=== PATIENT | female | born 1985 | race Caucasian/White ===

== ENCOUNTER 2022-02-15 21:49 | Emergency (ER) | payer SELFPAY ==
[~2022-02-15] VITALS: Ht 154.9 cm; Wt 70.9 kg
[2022-02-16] MEDS ORDERED: MECLIZINE 25MG TABLET PO ONE (01:15)
[2022-02-16] MEDS ORDERED: ACETAMINOPHEN 325MG TABLET PO ONE (01:15)
[2022-02-16 02:05] LABS: CLARITY URINE CLOUDY (CLEAR); COLOR URINE YELLOW (YELLOW); KETONES URINE NEGATIVE (NEGATIVE); LEUKOCYTE ESTERASE URINE 1+ (NEGATIVE); NITRITE URINE NEGATIVE (NEGATIVE); OCCULT BLOOD URINE NEGATIVE (NEGATIVE); PH URINE 7.5 (4.5-8.0); PROTEIN URINE TRACE (NEGATIVE); SPECIFIC GRAVITY URINE 1.024 (1.005-1.030)
[2022-02-16 02:06] LABS: BASOPHILS % 0.4 % (0.0-2.0); EOSINOPHILS % 0.2 % (0.0-5.0); HEMATOCRIT. 41.9 % (36.0-48.0); HEMOGLOBIN. 14.5 g/dL (12.0-16.0); LYMPHOCYTES % 12.9 % (20.0-50.0); MEAN CORPUSCULAR HEMOGLOBIN 28.3 pg (28.0-32.0); MEAN CORPUSCULAR VOLUME 81.8 fL (81.0-99.0); MEAN PLATELET VOLUME 7.6 fl (7.4-10.4); MONOCYTES % 4.4 % (2.0-8.0); NEUTROPHILS % 82.1 % (40.0-76.0); PLATELET 241 x1000/uL (130-400); RED BLOOD CELL COUNT 5.12 mill/uL (4.2-5.4); RED CELL DISTRIBUTION WIDTH 13.7 % (11.6-14.6)
[2022-02-16 02:12] LABS: CHLORIDE 102 mEq/L (98-107)
[2022-02-16] MEDS ORDERED: ONDANSETRON HCL 4MG/2ML INJ IV ONE (02:45)
[2022-02-16 02:47] VITALS: BP 120/68
[2022-02-16] MEDS ORDERED: IBUP-2029 MT (04:43)
[2022-02-16] MEDS ORDERED: MECL-159 MT (04:43)
== END 2022-02-16 05:02 | disposition home or self-care (01) ==
LOC: ER 21:49
DX: R42 Dizziness and giddiness (principal)
CPT/HCPCS: 36415; 70450; 71045; 80053; 81003; 81025; 85025; 93005; 96374; 99285; J2405; J8597; Z7610